=== PATIENT | male | born 1945 | race Caucasian/White ===

== ENCOUNTER → 2016-07-13 | Outpatient (CLI) | payer OTHER ==
--- NOTE | 2016-07-13 17:49 | PN ---
This is a compliancy check for sleep apnea. 70-year-old male patient with known history of obstructive sleep apnea, moderately severe, with an AHI of 23 and chronic insomnia who underwent a sleep evaluation and he was titrated to a CPAP pressure of 12 cm of water. He is coming in for a compliancy check. His sleep quality has improved; however, he still having some issues with his sleep in general. In terms of his sleep apnea, he is using his CPAP for more than 4 hours for most of the time. His average CPAP use is 4.6 hours per night. His AHI is up from 23, down to 3.9. No mask leaks and he is utilizing a Simplus full face mask. Nevertheless, he continues to have poor sleep hygiene. He goes to bed around 3:00 a.m. and wakes up at 8:00 a.m. in the morning and he averages around 5 hours of sleep. Later on during the day, he sleeps on the recliner. He goes to bed late as he waits for his to come back from work after midnight. At times he wakes up in the middle of the night and he eats. He is aware of his eating habits. He also has significant jerks and restlessness in the lower extremities and this has been noted in his sleep study where he had a significant amount of periodic limb movements. His weight is up by another 7 pounds. BP is 148/78, pulse is 88, respirations 16. [place] score around 4, temperature 97.5. Weight is 278, Saturation is 95% on room air. GENERAL APPEARANCE: Calm, comfortable. HEENT: Short neck, crowding of posterior pharynx. There is no goiter or neck mass. LUNGS: Diminished breath sounds bilaterally; otherwise clear. Heart sounds are regular rate and rhythm. Normal S1, S2. ABDOMEN: Soft, nontender. No organomegaly. EXTREMITIES: No edema. No cyanosis or clubbing. IMPRESSION: 1. Obstructive sleep apnea, moderate to severe AHI of 23, currently on CPAP at a pressure of 12 cm of water with good compliancy data. 2. Very poor sleep hygiene. 3. Delayed sleep phase syndrome. 4. Chronic insomnia, maintained on Ambien 10 mg. 5. Periodic limb movements/restless leg syndrome. 6. Chronic hypersomnia, improved. 7. Nocturnal oxygen desaturation improved. 8. Obesity with a body mass index of 42 with an interval 7 pound weight gain. 9. Diabetes mellitus. 10. Coronary artery bypass surgery with underlying coronary disease. 11. Hypertension. 12. Hyperlipidemia. PLAN: 1. Improve sleep hygiene measures and we discussed this at length with the patient. 2. Provide 0.5 mg of Mirapex for symptoms of restless leg syndrome. 3. Continue CPAP at the same level of pressure. 4. Encourage weight loss. 5. Improve sleep hygiene measures. 6. See me back in 90 days in follow-up. 7. Meanwhile the patient will continue with Omid for sleep induction and maintenance. 8. We will continue to follow and make further recommendations based on the patient's overall progress.
== END | disposition home or self-care (01) ==